=== PATIENT | male | born 1950 | race Caucasian/White ===

== ENCOUNTER 2018-02-16 16:41 | Outpatient (CLI) | payer MEDICARE ==
[2018-02-16 17:33] LABS: Hemoglobin 15.1 g/dL (14.0-18.0); Mean Corpuscular HGB CONC 33.9 g/dL (32.0-36.0); Mean Corpuscular Hemoglobin 31.1 pg (27.0-31.0); Mean Corpuscular Volume 91.8 fl (80.0-94.0); Mean Platelet Volume 8.2 fL (7.4-10.4); Platelet Count 185 thou/uL (130-400); RBC Distribution Width 11.8 % (11.5-14.5); Red Blood Cell (RBC) Count 4.84 mill/uL (4.70-6.10); White Blood Cell (WBC) Count 9.7 thou/uL (4.8-10.8)
[2018-02-16 17:38] LABS: Prothrombin Time 13.5 SEC (12.0-14.7)
[2018-02-16 17:50] LABS: Anion Gap 13 mmol/L (10-20); BUN (Urea Nitrogen) 21 mg/dL (8.4-25.7); Calc. Creatinine Clearance 0 mL/min (70-130); Calcium 9.5 mg/dL (7.8-10.44); Carbon Dioxide 26 mmol/L (23-31); Chloride 103 mmol/L (98-107); Estimated GFR-MDRD 65; Glucose 96 mg/dL (80-115); Potassium 4.7 mmol/L (3.5-5.1); Sodium 137 mmol/L (136-145)
[2018-02-16 18:15] LABS: Bilirubin Negative (Negative); Blood, Urine Large (Negative); Clarity CLOUDY (Clear); Glucose, Urine (Dipstick) Negative (Negative); Leukocyte Small (Negative); Nitrite Positive (Negative); Protein, Urine (Dipstick) Trace mg/dL (Neg-Trace); Specific Gravity, Urine 1.017 (1.002-1.036); Urobilinogen 0.2 mg/dL (0.2-1.0); pH, Urine 5.5 (5.0-9.0)
[2018-02-16 18:17] LABS: Bacteria/HPF None Seen HPF (None Seen); Hyaline Casts/LPF 0-3 HYALINE CAST LPF (0-3 Hyaline); Pathc Cast-AUWi Flag 0.27 (0-2.49); RBC/HPF GREATER THAN 50-TNTC HPF (0-3); Squamous Epithelial None Seen HPF (0-3); WBC/HPF 21-50 HPF (0-3)
--- NOTE | 2018-02-17 20:30 | EKG ---
Test Reason : Blood Pressure : / mmHG Vent. Rate : 059 BPM Atrial Rate : 059 BPM P-R Int : 116 ms QRS Dur : 084 ms QT Int : 436 ms P-R-T Axes : 026 007 007 degrees QTc Int : 431 ms Sinus bradycardia Nonspecific ST abnormality Abnormal ECG No previous ECGs available Confirmed by CRYS HARRIS, DR. Haddad ([id number]) on 02/17/2018 8:30:24 PM Referred By: RONALDO Confirmed By:DR. Boo SPANGLER MD
== END 2018-02-16 16:42 | disposition home or self-care (01) ==
LOC: LABBT 16:41
PROVIDERS: ATTEND Urology
DX: Z01.818 Encounter for other preprocedural examination (principal); N40.1 Benign prostatic hyperplasia with lower urinary tract symptoms
CPT/HCPCS: 80048; 81001; 85027; 85610; 85730; 87086; 93005; 93010

== ENCOUNTER 2018-02-24 11:28 | Observation (INO) | payer MEDICARE ==
[2018-02-16 17:11] VITALS: BMI 29.0
[2018-02-24] MEDS ORDERED: Levofloxacin 500 mg/D5W 100 ml Premix Bag ONE (13:43)
[2018-02-24] MEDS ORDERED: Fentanyl 250 MCG/5 ML VIAL ONE (13:59)
[2018-02-24] MEDS ORDERED: Promethazine HCl 25 MG/ML VIAL ONE (13:59)
[2018-02-24] MEDS ORDERED: PHENYLEPHRINE-NS 100 MCG/ML 10 ML SYRINGE ONE (14:27)
[2018-02-24] MEDS ORDERED: Lidocaine 1% PF 5 ML VIAL ONE (14:27)
[2018-02-24] MEDS ORDERED: Glycopyrrolate 0.2 MG/ML 5 ML SYRINGE ONE ×2 (14:27)
[2018-02-24] MEDS ORDERED: Ondansetron HCl/PF 4 MG/2 ML Vial ONE (14:27)
[2018-02-24] MEDS ORDERED: ePHEDrine/0.9% NaCl/PF SYRINGE 50 mg/10 ml ONE (14:27)
[2018-02-24] MEDS ORDERED: Propofol 200 MG/20 ML VIAL ONE (14:27)
[2018-02-24] MEDS ORDERED: Mag-Al 1200 mg/1200 mg/30 ML UDCUP PO PRN (14:40)
[2018-02-24] MEDS ORDERED: diphenhydrAMINE 25 MG CAP PO PRN (14:40)
[2018-02-24] MEDS ORDERED: Oxybutynin 5 MG TAB PO PRN (14:40)
[2018-02-24] MEDS ORDERED: Ondansetron HCl/PF 4 MG/2 ML Vial IVP PRN (14:40)
[2018-02-24] MEDS ORDERED: hydrALAZINE 20 MG/ML VIAL SLOW IVP PRN (14:40)
[2018-02-24] MEDS ORDERED: traMADol HCl 50 MG TAB PO PRN (14:43)
[2018-02-24] MEDS ORDERED: Acetaminophen 500 MG TAB PO PRN (14:45)
[2018-02-24] MEDS ORDERED: Fentanyl 100 MCG/2 ML VIAL ONE (16:22)
--- NOTE | 2018-02-24 16:22 | OP ---
DATE OF PROCEDURE: 02/24/2018 SERVICE: Urology. SURGEON: Ab Martinez M.D. PREOPERATIVE DIAGNOSIS: Benign prostatic hypertrophy. POSTOPERATIVE DIAGNOSIS: Benign prostatic hypertrophy. PROCEDURE PERFORMED: Transurethral resection of the prostate. INDICATIONS FOR PROCEDURE: Mr. Fuller is a 67-year-old white male who initially presented to me wit h a ureteral stone. During his ureteroscopy, it was noted the patient had a very large prostate, whi ch was a large median lobe and very obstructive. I discussed with him undergoing a TURP. While he w as thinking about this, he ended up going into urinary retention after his stent removal. Despite us e of Flomax, patient was not able to empty his bladder and required CIC. Due to his severe lower uri nary tract symptoms, he elected to go forward with TURP. Risks and benefits of the surgery were disc ussed and he has agreed to proceed forward. DESCRIPTION OF PROCEDURE: After identification of his armband and verification of consent, the patie nt was brought back to the operating room and given general anesthesia with an LMA. He was placed in dorsal lithotomy position and prepped and draped in usual sterile fashion. After appropriate timeou t, a 26 Somali visual obturator sheath was placed through the urethra with ease into the bladder. Th e visual obturator was then removed for the bipolar gyrus resectoscope loop for the prostate. Both u reters were identified at the start of the case and marked medial and proximal to the UO for later id entification. Resection of the prostate was started on the median lobe and resected circumferentiall y until the verumontanum and the capsule of the prostate around the periphery. Upon completion, the prostate was wide open, almost all the adenomatous tissue had been removed. Meticulous hemostasis wa s then performed with the gyrus bipolar loop and upon completion, the Nereida evacuator was used to rem ove all remaining prostate chips. Once all the prostate chips were removed, hemostasis was then re-a chieved for any minor small bleeders that were remaining with the bipolar loop. Upon completion, the re was no active bleeding. All the prostate chips have been removed and both ureters were in their o rthotopic location unharmed. Satisfied that the resectoscope was removed and a 22-Somali three-way F oley catheter placed with ease into the bladder, CBI was initiated and 30 mL of sterile water placed into the balloon. The patient had his catheter affixed with a StatLock and was taken out of lithotom y and was awakened and taken to PACU for recovery in stable condition. COMPLICATIONS: None. ESTIMATED BLOOD LOSS: Minimal. RETAINED TUBES AND DRAINS: A 22-Somali 3-way Marc catheter on CBI. SPECIMENS: Prostate chips. DISPOSITION: The patient will be kept in the hospital overnight for CBI. We will plan stopping the CBI in the morning and then a void trial. He can be discharged with followup on an outpatient basis.
[2018-02-24 16:44] LABS: Anion Gap 9 mmol/L (10-20); BUN (Urea Nitrogen) 18 mg/dL (8.4-25.7); Calc. Creatinine Clearance 101 mL/min (70-130); Calcium 8.4 mg/dL (7.8-10.44); Carbon Dioxide 26 mmol/L (23-31); Chloride 107 mmol/L (98-107); Estimated GFR-MDRD 77; Glucose 96 mg/dL (80-115); Potassium 4.3 mmol/L (3.5-5.1); Sodium 138 mmol/L (136-145)
[2018-02-24] MEDS: Acetaminophen/Codeine 30-300mg Tablet PO PRN (20:11)
[2018-02-24] MEDS: Docusate 100 MG CAP PO SCH (20:11)
[2018-02-25] MEDS: Acetaminophen/Codeine 30-300mg Tablet PO PRN ×2 (03:51→10:28)
[2018-02-25 05:51] LABS: #Eosinphils 0.1 thou/uL (0.0-0.7); #Lymphocytes 1.5 thou/uL (1.20-3.40); #Monocytes 0.6 thou/uL (0.11-0.59); #Neutrophils 4.5 thou/uL (1.40-6.50); %Basophils 0.5 % (0.0-1.0); %Eosinophils 2.1 % (0.0-10.0); %Lymphocytes 22.2 % (21.0-51.0); %Monocytes 8.7 % (0.0-10.0); %Neutrophils 66.4 % (42.0-75.0); Hemoglobin 12.2 g/dL (14.0-18.0); Mean Corpuscular Volume 93.9 fl (80.0-94.0); Platelet Count 153 thou/uL (130-400); RBC Distribution Width 11.9 % (11.5-14.5); Red Blood Cell (RBC) Count 3.92 mill/uL (4.70-6.10); White Blood Cell (WBC) Count 6.8 thou/uL (4.8-10.8)
[2018-02-25 06:06] LABS: Anion Gap 9 mmol/L (10-20); BUN (Urea Nitrogen) 16 mg/dL (8.4-25.7); Calc. Creatinine Clearance 96 mL/min (70-130); Calcium 8.4 mg/dL (7.8-10.44); Carbon Dioxide 27 mmol/L (23-31); Chloride 105 mmol/L (98-107); Estimated GFR-MDRD 72; Glucose 100 mg/dL (80-115); Potassium 4.5 mmol/L (3.5-5.1); Sodium 136 mmol/L (136-145)
[2018-02-25] MEDS: Docusate 100 MG CAP PO SCH (08:23)
[2018-02-25] MEDS ORDERED: Levothyroxine Sodium 100 MCG TAB PO SCH (09:00)
[2018-02-25 15:16] VITALS: BP 96/67; TEMP 97.9
--- NOTE | 2018-02-25 17:14 | PRG ---
DATE OF SERVICE: 02/25/2018 SUBJECTIVE: The patient states he is doing well. He has had no pain. He is up and walking around t his morning. His CBI was held this a.m. and he has very little blood in his urine. Currently, he de nies any bladder spasms or fevers. OBJECTIVE: VITAL SIGNS: Temperature 97.9, pulse 69, respirations 18, blood pressure 96/67 and saturation is 97% on room air. GENERAL: No apparent distress, communicative and alert. CARDIOVASCULAR: Regular rate and rhythm. ABDOMEN: Soft, nontender and nondistended. Positive bowel sounds. GENITOURINARY: Marc catheter in place with a slightly blood tinged urine. The patient underwent a voiding trial with filling of his bladder with the CBI irrigant and then removal of the catheter. Th e patient was able to void spontaneously afterwards, some of which went into a urinal and some of whi ch went into the toilet due to the patient needing to have a bowel movement. EXTREMITIES: Stable, 2+ lower extremity edema, but otherwise no clubbing or cyanosis. LABORATORY DATA: On laboratory evaluation, the full set of labs in the [facility] system, which I have reviewed. Of note, the patient's hemoglobin is 12.2 with a creatinine of 1.03. ASSESSMENT AND PLAN: A 67-year-old white male with benign prostatic hypertrophy, status post TURP po stoperative day #1 with successful voiding trial. I went over his postoperative and discharge instru ctions with him and I do believe that he is cleared for discharge. I have asked him to remain off of any blood thinning products and I will see him back in the office in approximately 2 weeks for a pos toperative check. Full discharge instructions are included in the discharge summary.
--- NOTE | 2018-02-26 01:06 | DIS ---
DATE OF ADMISSION: 02/24/2018 DATE OF DISCHARGE: 02/25/2018 ADMITTING DIAGNOSIS: Benign prostatic hypertrophy. DISCHARGE DIAGNOSIS: Benign prostatic hypertrophy. PROCEDURES PERFORMED WHILE INPATIENT: Transurethral resection of the prostate. ADMITTING PHYSICIAN: Ab Martinez M.D. DISCHARGING PHYSICIAN: Ab Martinez M.D. BRIEF HISTORY: Mr. Fuller is a 67-year-old white male who was admitted for his TURP, please see the full scanned H and P for details. HOSPITAL COURSE: After his surgery, the patient was kept in observation in the hospital for continuo us bladder irrigation. He had very little bleeding and no problems overnight. He underwent a succes sful void trial in the morning. His urine stream was not very strong, but this may be due to just so me inflammation and central nervous system suppression, poor bladder contractility, although he was s till able to pass his voiding trial and was able to be discharged home. DISPOSITION: Discharge to home. DISCHARGE CONDITION: Good. DISCHARGE MEDICATIONS: Include resuming his home medications except for his ibuprofen and tamsulosin . Tamsulosin will be discontinued permanently. Ibuprofen will be held for approximately 2 weeks bef ore he can resume that. In addition, he was given Colace 100 mg p.o. b.i.d. and oxybutynin 5 mg p.o. t.i.d. p.r.n., urgency. DISCHARGE INSTRUCTIONS: Include no heavy lifting, no strenuous activity, no long car rides or excess [place] walking until the hematuria resolves. He should avoid constipation. He is to notify me for inab ility to urinate, dysuria, fevers, heavy hematuria or any other concerning signs or symptoms the rekha ent may have. I will see him back on 03/09/2018 at 11:15 for followup.
== END 2018-02-25 17:55 | disposition home or self-care (01) ==
LOC: SDC 11:28 → SURG A 16:36
PROVIDERS: ADMIT Urology; ATTEND Urology
PROC: 0VT08ZZ Resection of Prostate, Via Natural or Artificial Opening Endoscopic (ICD-10-PCS; principal; 2018-02-24)
PROC: 0W3R8ZZ Control Bleeding in Genitourinary Tract, Via Natural or Artificial Opening Endoscopic (ICD-10-PCS; 2018-02-24)
DX: N40.1 Benign prostatic hyperplasia with lower urinary tract symptoms (principal); R33.8 Other retention of urine; N13.8 Other obstructive and reflux uropathy; E03.9 Hypothyroidism, unspecified; I10 Essential (primary) hypertension; M19.90 Unspecified osteoarthritis, unspecified site; Z87.440 Personal history of urinary (tract) infections; Z87.891 Personal history of nicotine dependence; Z88.5 Allergy status to narcotic agent; Z88.6 Allergy status to analgesic agent; Z88.8 Allergy status to other drugs, medicaments and biological substances; Z79.899 Other long term (current) drug therapy
CPT/HCPCS: 51798; 52601; 80048 ×2; 85025; 88305; 96374; G0378; 36415; J1956; J2001; J2405; J2550; J2704; J3010

== ENCOUNTER 2018-03-20 10:25 | Outpatient (CLI) | payer MEDICARE | END 2018-03-20 10:26 | disposition home or self-care (01) | LOC: BICULT 10:25 | PROVIDERS: ATTEND Urology | DX: N20.0 Calculus of kidney (principal) | CPT/HCPCS: 76770 ==